=== PATIENT | female | born 1980 | race Hispanic/Latino ===

== ENCOUNTER 2017-10-04 11:00 | Outpatient (CLI) | payer MEDICAID | END 2017-10-04 11:01 | disposition home or self-care (01) | LOC: SLR 11:00 | PROVIDERS: ATTEND Otolaryngology | DX: G47.33 Obstructive sleep apnea (adult) (pediatric) (principal); R40.0 Somnolence | CPT/HCPCS: G0399 ==

== ENCOUNTER 2018-09-09 07:57 | Day surgery (SDC) | payer MEDICAID ==
[~2018-09-09 07:57] MED LIST: NACL 0.9% 1000 ML 1,000 ML IV SCH
--- NOTE | 2018-09-09 09:34 | Anesthesia Day of Surgery ---
Anesthesia Day of Surgery - Day of Surgery Patient Examined: Yes Patient H&P Reviewed: Yes Patient is NPO: Yes
--- NOTE | 2018-09-09 09:36 | Anesthesia Consultation ---
Anesthesia Consult and Med Hx Date of service: 09/09/18 - Airway Anesthetic Teeth Evaluation: Edentulous ROM Head & Neck: Adequate Mental/Hyoid Distance: Adequate Mallampati Class: Class II Intubation Access Assessment: Good - Pre-Operative Health Status ASA Pre-Surgery Classification: ASA3 Proposed Anesthetic Plan: MAC - Pulmonary Hx Asthma: Yes Hx Sleep Apnea: Yes - Cardiovascular System Hx Hypertension: Yes - Central Nervous System Hx Neuromuscular Disorder: Yes (RA; Fibromyalgia) Hx Back Pain: Yes - Gastrointestinal Hx Gastroesophageal Reflux Disease: Yes - Endocrine Hx Liver Disease: Yes (Fatty liver) Hx Thyroid Disease: Yes (Thyroidectomy) Hx Hypothyroidism: Yes
[2018-09-09] MEDS ORDERED: DIPRIVAN 10 MG/ML IV ONE (10:40)
[2018-09-09] MEDS ORDERED: WATER FOR IRRIG STERILE IR ONE (10:45)
[2018-09-09 11:51] VITALS: BP 144/79
== END 2018-09-09 07:58 | disposition home or self-care (01) ==
LOC: GIO 07:57
PROVIDERS: ATTEND Specialist
DX: K21.9 Gastro-esophageal reflux disease without esophagitis (principal); K44.9 Diaphragmatic hernia without obstruction or gangrene; E66.01 Morbid (severe) obesity due to excess calories; K30 Functional dyspepsia; I10 Essential (primary) hypertension; J45.909 Unspecified asthma, uncomplicated; G47.30 Sleep apnea, unspecified; M79.7 Fibromyalgia; E03.9 Hypothyroidism, unspecified; E11.9 Type 2 diabetes mellitus without complications; Z79.899 Other long term (current) drug therapy; Z88.6 Allergy status to analgesic agent; Z79.84 Long term (current) use of oral hypoglycemic drugs; Z68.42 Body mass index [BMI] 45.0-49.9, adult
CPT/HCPCS: 43235; 81025; 82962; 88305; 88342; J2704; J7030

== ENCOUNTER 2018-09-30 07:53 | Inpatient (IN) | payer MEDICAID ==
--- NOTE | 2018-09-29 10:55 | Anesthesia Consultation ---
Anesthesia Consult and Med Hx Date of service: 09/29/18 - Airway Anesthetic Teeth Evaluation: Dentures ROM Head & Neck: Adequate Mallampati Class: Class II Intubation Access Assessment: Probably Good - Pulmonary Exam CTA: Yes - Cardiac Exam Cardiac Exam: RRR - Pre-Operative Health Status ASA Pre-Surgery Classification: ASA3 Proposed Anesthetic Plan: General (Pt with DM, HTN, reflux, hypothroidism and morbid obesity for Gastric Sleevevs bypass ) - Pulmonary Hx Smoking: Yes Hx Asthma: Yes (RESCUE INHALER, ORAL MED) Hx Sleep Apnea: No (SLEEP STUDY NEG) - Cardiovascular System Hx Hypertension: Yes (2013) - Central Nervous System Hx Neuromuscular Disorder: Yes (RA; Fibromyalgia) Hx Back Pain: Yes Hx Psychiatric Problems: Yes - Gastrointestinal Hx Gastroesophageal Reflux Disease: Yes - Endocrine Hx Liver Disease: Yes (Fatty liver) Hx Thyroid Disease: Yes (Thyroidectomy) Hx Hypothyroidism: Yes (THYROIDECTOMY) - Other Systems Hx Obesity: Yes
[~2018-09-30 07:53] MED LIST changes: +MARCAINE-EPI 0.5%-1:200,000 INFILTRATI ONE; +PEPCID PO NR; +PROVENTIL IH NR; +VERSED IV NR; +XYLOCAINE 1% 20 mL ONE
[2018-09-30] MEDS ORDERED: NORCO PO PRN (08:08)
[2018-09-30] MEDS ORDERED: ZOFRAN IV PRN ×2 (08:08→08:35)
[2018-09-30] MEDS ORDERED: SUBLIMAZE IV PRN (08:35)
--- NOTE | 2018-09-30 08:39 | Anesthesia Day of Surgery ---
Anesthesia Day of Surgery - Day of Surgery Patient Examined: Yes Patient H&P Reviewed: Yes Patient is NPO: Yes
[2018-09-30] MEDS ORDERED: PEPCID IV NR (08:44)
[2018-09-30] MEDS ORDERED: LEVAQUIN 500MG/100ML 500 MG/100 ML BAG IV NR (09:00)
[2018-09-30] MEDS ORDERED: LOVENOX SUB-Q NR (09:00)
[2018-09-30] MEDS ORDERED: FLAGYL 500 MG/100 ML 500 MG/100 ML BAG IV NR (10:00)
[2018-09-30] MEDS ORDERED: DIPRIVAN 10 MG/ML IV ONE (10:02)
[2018-09-30] MEDS ORDERED: SUBLIMAZE ONE ×2 (10:02→11:16)
[2018-09-30] MEDS ORDERED: NACL 0.9% IR ONE ×2 (10:10)
[2018-09-30] MEDS ORDERED: XYLOCAINE 1% 20 mL INFILTRATI ONE (10:10)
[2018-09-30] MEDS ORDERED: MARCAINE-EPI 0.5%-1:200,000 INFILTRATI ONE (10:10)
[2018-09-30] MEDS ORDERED: APRESOLINE IV PRN (10:30)
[2018-09-30] MEDS ORDERED: VERSED IV ONE (10:30)
[2018-09-30] MEDS ORDERED: QUELICIN ONE (11:17)
[2018-09-30] MEDS ORDERED: ZOFRAN ONE (11:17)
[2018-09-30] MEDS ORDERED: ROBINUL ONE ×2 (11:17→11:30)
[2018-09-30] MEDS ORDERED: DECADRON ONE (11:17)
[2018-09-30] MEDS ORDERED: NEO SYNEPHRINE ONE (11:17)
[2018-09-30] MEDS ORDERED: LACTATED RINGERS 1,000 ML ONE (11:17)
[2018-09-30] MEDS ORDERED: ZEMURON IV ONE (11:17)
[2018-09-30] MEDS ORDERED: XYLOCAINE MPF 2% ONE (11:17)
[2018-09-30] MEDS ORDERED: BLOXIVERZ ONE (11:30)
[2018-09-30] MEDS: REGLAN IV PRN ×2 (12:30→20:45)
[2018-09-30] MEDS: MYLICON PO PRN ×2 (12:34→20:45)
[2018-09-30] MEDS: TORADOL IV SCH ×2 (12:44→18:11)
[2018-09-30] MEDS: LACTATED RINGERS 1,000 ML IV SCH ×2 (13:42→20:43)
[2018-09-30] MEDS: DILAUDID IV PRN ×3 (14:47→23:58)
--- NOTE | 2018-09-30 17:14 | Operative Report ---
SURGEON: Raleigh Scott MD ASSISTANTS: Chadwick Gilliland MD Fellow; Vesna Self MD, CSA PREOPERATIVE DIAGNOSIS: Morbid obesity. POSTOPERATIVE DIAGNOSIS: Morbid obesity. OPERATION: 1. Laparoscopic Monica-en-Y gastric bypass, 150 cm antecolic antegastric. 2. Upper endoscopy. ANESTHESIA: General endotracheal anesthesia. COMPLICATIONS: None. SPECIMENS: None. BLEEDING: Less than 15 mL. INDICATIONS: The patient is a 38-year-old female with a history of morbid obesity. She has undergone preoperative bariatric workup and presents for a planned operation. The risks, complications and alternatives have been explained to the patient and informed consent was obtained. DESCRIPTION OF PROCEDURE: The patient was brought to the operating room where she was placed in the supine position and underwent general endotracheal intubation. She received preoperative antibiotics and DVT prophylaxis. She was prepped and draped in the usual sterile fashion and then a timeout was called to ensure proper patient, indication, operation. Local analgesia was injected around the umbilical region. A small stab incision was made at the base of the umbilicus with insertion of a Veress needle and insufflation pressures were achieved to 18 mmHg. This incision was slightly widened and a 5 mm trocar was placed. On intraabdominal view, there was no injury. A 12 mm trocar was placed to the right of the midclavicular line and 5 mm ports were placed in the right lateral subxiphoid in left lateral quadrant. The ligament of Treitz was identified. The bowel was run 50 cm antegrade and transected at this point with a white load stapler. The staple line was cauterized for hemostasis. Then, the mesentery was slightly widened. After this, the bowel was run an additional 150 cm antegrade and then a jejunojejunostomy was then performed utilizing a white load staple. The common enterotomy was closed with another staple load, and the staple line was cauterized for hemostasis. After this, an anti-kink stitch was placed with a 0 Surgidac suture. The afferent limb to the biliopancreatic limb and then the mesenteric defect was closed with a running 0 Surgidac suture. After this, a liver retractor was placed and the patient was repositioned in steep reverse Trendelenburg. The angle of His was dissected free and the gastroesophageal fat pad was removed. She had no hiatal hernia. A retrogastric dissection was performed with electrocautery and blunt dissection and a 30 cc pouch was created with several staple loads. After this, a gastrojejunostomy was one, bringing up the Monica limb and securing medially and laterally with 0 Surgidac sutures. A gastrotomy and enterotomy were performed and a gastrojejunostomy was created. The common enterotomy was closed with 2 layers of 2-0 running V-Loc sutures. After this, the anastomosis was submerged and the Monica limb was clamped with a bowel clamp. An upper endoscopy was performed, which was negative for leak or any intraluminal bleeding. The scope passed into the Monica limb with no issues. After this, the air was suctioned out. The gastroscope was removed. Normal saline was instilled into the left upper and right upper quadrant to assist with postoperative gas pain and air was desufflated and the ports were removed. Additional local was injected into the umbilical and incisional wounds and the incisions were closed with 4-0 Monocryl. Sterile bandages were placed over top. The patient tolerated the procedure well and was then extubated and left the operating room in stable condition. Counts were correct. FINDINGS: 1. Negative leak test. 2. Fatty liver. JOB# [id number] DESTINEE/GAGE AMBROSIO
[2018-09-30] MEDS: GLUCOPHAGE PO SCH (18:14)
[2018-09-30] MEDS ORDERED: SINGULAIR PO SCH (21:00)
[2018-10-01] MEDS: TORADOL IV SCH ×3 (00:02→12:00)
[2018-10-01 05:41] LABS: Basophils % (Auto) 0.1 % (0.0-1.8); Eosinophils % (Auto) 0.1 % (0.0-4.3); Hematocrit 31.9 % (30.3-42.9); Hemoglobin 10.4 gm/dl (10.1-14.3); Lymphocytes # (Auto) 1.6 K/mm3 (1.2-5.4); Lymphocytes % (Auto) 9.7 % (13.4-35.0); Mean Corpuscular HGB Conc 33 % (30-34); Mean Corpuscular Volume 79 fl (79-97); Monocytes # (Auto) 0.6 K/mm3 (0.0-0.8); Monocytes % (Auto) 3.4 % (0.0-7.3); Platelet Count 264 K/mm3 (140-440); Red Blood Count 4.01 M/mm3 (3.65-5.03); Red Cell Distribution Width 14.8 % (13.2-15.2)
[2018-10-01] MEDS: DILAUDID IV PRN (05:46)
[2018-10-01] MEDS: REGLAN IV PRN (05:46)
[2018-10-01] MEDS: MYLICON PO PRN (05:47)
[2018-10-01] MEDS: LACTATED RINGERS 1,000 ML IV SCH (05:48)
[2018-10-01] MEDS ORDERED: SYNTHROID PO SCH (06:00)
[2018-10-01 06:06] LABS: Albumin 3.4 g/dL (3.9-5)
--- NOTE | 2018-10-01 07:22 | Discharge Summary ---
Providers - Providers Date of Admission: 09/30/18 07:53 Date of discharge: 10/01/18 Attending physician: TERRELL SCOTT Primary care physician: LANIE GREEN Hospitalization Reason for admission: postop Condition: Good Procedures: 10/01/18: Laparoscopic RYGB Hospital course: 38F admitted after her operation for routine postop care. She was managed on the general floor, ambulated, tolerated a CLD, and was dc home POD1. Disposition: DC-01 TO HOME OR SELFCARE Core Measure Documentation - Palliative Care Palliative Care/ Comfort Measures: Not Applicable - Core Measures Any of the following diagnoses?: none - VTE Discharge Requirements Deep Vein Thrombosis/Pulmonary Embolism Present on Admission: No - Acute MA Discharge Requirements Aspirin at discharge: No Reason for no aspirin on DC: Surgical contraindication - Heart Failure Discharge Requirements NISHANT/ARB for LVSD if EF <40%: Not Applicable - Stroke Discharge Requirements Statin for LDL = or >70 mg/dl on DC: Not Applicable Exam - Physical Exam Narrative exam: Gen: AAO, NAD Heart: RRR Lungs: CTAB Abd: MO, soft, NT, ND. Bandages present and c/d/i. - Constitutional Vitals: Temp Pulse Resp BP Pulse Ox 97.9 F 85 20 116/64 97 10/01/18 05:40 10/01/18 05:40 10/01/18 05:40 10/01/18 05:40 10/01/18 05:40 Plan Diet: clear liquids Wound: keep clean and dry Additional Instructions: Anibal Scott as scheduled Follow up with: LANIE GREEN MD [Primary Care Provider] - 7 Days
[2018-10-01] MEDS ORDERED: LOVENOX SUB-Q SCH (08:00)
[2018-10-01] MEDS ORDERED: HCTZ PO SCH (08:00)
[2018-10-01] MEDS ORDERED: PROTONIX PO SCH (08:00)
[2018-10-01] MEDS ORDERED: ZESTRIL PO SCH (08:00)
[2018-10-01 08:16] VITALS: BP 139/74
[2018-10-01] MEDS: GLUCOPHAGE PO SCH (11:21)
== END 2018-10-01 12:12 | disposition home or self-care (01) | DRG 621 ==
LOC: 3A 07:53 → 3B 12:10 → 3B-SURG 12:11
PROVIDERS: ADMIT Specialist; ATTEND Specialist
PROC: 0D164ZA Bypass Stomach to Jejunum, Percutaneous Endoscopic Approach (ICD-10-PCS; principal; 2018-09-30)
PROC: 0DJ08ZZ Inspection of Upper Intestinal Tract, Via Natural or Artificial Opening Endoscopic (ICD-10-PCS; 2018-09-30)
DX: E66.01 Morbid (severe) obesity due to excess calories (principal); I10 Essential (primary) hypertension; K21.9 Gastro-esophageal reflux disease without esophagitis; E89.0 Postprocedural hypothyroidism; E11.9 Type 2 diabetes mellitus without complications; J45.909 Unspecified asthma, uncomplicated; Z68.42 Body mass index [BMI] 45.0-49.9, adult; M79.7 Fibromyalgia
CPT/HCPCS: 36415; 80053; 81025; 82962; 85025; G0378; A4217; J0330; J1100; J1170; J1650; J1885; J1956; J2250; J2370; J2405; J2704; J2710; J2765; J3010; J7030; J7120

== ENCOUNTER 2018-10-13 12:50 | Inpatient (IN) | payer MEDICAID ==
[2018-10-13] MEDS ORDERED: NACL 0.9% 1000 ML 1,000 ML IV ONE ×5 (13:38→19:25)
[2018-10-13] MEDS ORDERED: MORPHINE IV ONE (13:38)
[2018-10-13] MEDS ORDERED: REGLAN IV ONE (13:39)
--- NOTE | 2018-10-13 13:40 | Emergency Department Report ---
ED General Adult HPI - General Chief complaint: Abdominal Pain Stated complaint: DIZZINESS/N/V Time Seen by Provider: 10/13/18 13:29 Source: patient, EMS (verbal report received from EMS.ems notes not available at time of chart dictation), RN notes reviewed, old records reviewed Mode of arrival: Stretcher Limitations: Physical Limitation - History of Present Illness Initial comments: This is a 38-year-old female. The patient is not known to this provider previously. Primary care Dr.: Yaniv Crowder Bariatric surgeon: Dr Yesica Scott Past medical history: Morbid obesity, hypothyroidism, diabetes, dyspepsia, recently had a Monica-en-Y gastric bypass surgery performed at this hospital. Patient brought to the hospital by EMS. Patient reports being in her usual state of health when she consumed yogurt earlier on today, and shortly thereafter, began to have diffuse cramping abdominal pain, nausea and vomiting. EMS verbally reports to give the patient fluid and Zofran. Patient indicates her abdominal pain is diffuse, cramping, sharp, does not radiate anywhere, increases with palpation and decreases with rest. She's been having chronic loose bowel movements since discharge from the hospital. She reports that she had cardiac clearance prior to her surgery by a supervisor fryer farm in [place], does not know the specific name. Patient also endorses shortness of breath, which started today, which she describes as a sensation of "breathing through a straw." She is urinating less than normal. She also endorses lower extremity cramping and discomfort. -: Sudden Location: abdomen, left, right, lower extremity Radiation: non-radiation Consistency: constant Improves with: other Worsens with: other - Related Data Home Medications Medication Instructions Recorded Confirmed Last Taken Albuterol Sulfate [Proventil Hfa] 2 puff IH Q4H PRN 09/24/18 10/14/18 09/29/18 Levothyroxine [Synthroid] 150 mcg PO QAM 09/24/18 10/14/18 10/13/18 Lisinopril/Hydrochlorothiazide 1 each PO DAILY 09/24/18 10/14/18 10/13/18 [Zestoretic 10-12.5 mg Tablet] Montelukast [Singulair] 10 mg PO QPM 09/24/18 10/14/18 10/13/18 Omeprazole 40 mg PO DAILY 09/24/18 10/14/18 10/13/18 metFORMIN [Glucophage] 500 mg PO BID 09/24/18 10/14/18 10/13/18 Allergies Allergy/AdvReac Type Severity Reaction Status Date / Time amoxicillin Allergy Rash, Verified 09/24/18 09:09 CLOSES THE AIRWAYS ED Review of Systems ROS: Stated complaint: DIZZINESS/N/V Other details as noted in HPI Constitutional: malaise, other Eyes: denies: eye discharge ENT: denies: epistaxis Respiratory: shortness of breath Cardiovascular: denies: palpitations Gastrointestinal: abdominal pain, nausea, vomiting, diarrhea Genitourinary: other (decreased urinary frequency) Musculoskeletal: arthralgia Skin: denies: lesions Neurological: weakness Psychiatric: anxiety Hematological/Lymphatic: denies: easy bleeding ED Past Medical Hx - Past Medical History Hx Hypertension: Yes (2013) Hx Diabetes: Yes (2013) Hx GERD: Yes Hx Liver Disease: Yes (Fatty liver) Hx Asthma: Yes (RESCUE INHALER, ORAL MED) Hx HIV: (NEVER TESTED) - Surgical History Hx Cholecystectomy: Yes Hx Breast Surgery: Yes (L CYST REMOVAL) - Social History Smoking Status: Never Smoker Substance Use Type: None - Medications Home Medications: Home Medications Medication Instructions Recorded Confirmed Last Taken Type Albuterol Sulfate [Proventil Hfa] 2 puff IH Q4H PRN 09/24/18 10/14/18 09/29/18 History Levothyroxine [Synthroid] 150 mcg PO QAM 09/24/18 10/14/18 10/13/18 History Lisinopril/Hydrochlorothiazide 1 each PO DAILY 09/24/18 10/14/18 10/13/18 History [Zestoretic 10-12.5 mg Tablet] Montelukast [Singulair] 10 mg PO QPM 09/24/18 10/14/18 10/13/18 History Omeprazole 40 mg PO DAILY 09/24/18 10/14/18 10/13/18 History metFORMIN [Glucophage] 500 mg PO BID 09/24/18 10/14/18 10/13/18 History ED Physical Exam - General Limitations: No Limitations General appearance: alert, in no apparent distress - Head Head exam: Present: atraumatic, normocephalic - Eye Eye exam: Present: normal appearance, EOMI. Absent: nystagmus - ENT ENT exam: Present: normal exam, normal orophraynx, mucous membranes moist, normal external ear exam - Neck Neck exam: Present: normal inspection, full ROM. Absent: tenderness, m eningismus - Respiratory Respiratory exam: Present: normal lung sounds bilaterally. Absent: respiratory distress - Cardiovascular Cardiovascular Exam: Present: regular rate, normal rhythm, normal heart sounds. Absent: bradycardia, tachycardia, irregular rhythm, systolic murmur, diastolic murmur, rubs, gallop - GI/Abdominal GI/Abdominal exam: Present: soft, tenderness. Absent: distended, guarding, rebound, rigid, pulsatile mass - Extremities Exam Extremities exam: Present: normal inspection, full ROM, calf tenderness (there is no palpable cord. There is a negative Homans sign.), other (2+ pulses noted in the bilateral upper, lower extremities. Compartments soft. No long bony tenderness. The pelvis is stable.). Absent: pedal edema - Back Exam Back exam: Present: normal inspection, full ROM. Absent: tenderness, CVA tenderness (R), CVA tenderness (L), paraspinal tenderness, vertebral tenderness - Neurological Exam Neurological exam: Present: alert, oriented X3, other (Extraocular movements intact. Tongue midline. No facial droop. Facial sensation intact to light touch in the V1, V2, V3 distribution bilaterally. 5 and 5 strength in 4 extrem ities.. Sensation is intact to light touch in 4 extremities.). Absent: motor sensory deficit - Psychiatric Psychiatric exam: Present: anxious - Skin Skin exam: Present: warm, dry, intact, normal color. Absent: rash ED Course Vital Signs 10/13/18 10/13/18 10/13/18 13:35 14:32 14:46 Temperature 98.8 F Pulse Rate 96 H 98 H Respiratory 18 17 20 Rate Blood Pressure 93/57 89/42 Blood Pressure [Right] O2 Sat by Pulse 100 96 Oximetry 10/13/18 10/13/18 10/13/18 14:54 15:00 15:15 Temperature Pulse Rate 93 H 89 Respiratory 22 25 H Rate Blood Pressure 94/46 92/44 Blood Pressure [Right] O2 Sat by Pulse 98 96 94 Oximetry 10/13/18 10/13/18 10/13/18 15:30 17:26 17:30 Temperature Pulse Rate 86 88 Respiratory 25 H 18 Rate Blood Pressure 88/36 Blood Pressure [Right] O2 Sat by Pulse 96 98 97 Oximetry 10/13/18 10/13/18 10/13/18 17:45 18:00 18:15 Temperature Pulse Rate 86 82 95 H Respiratory 23 21 21 Rate Blood Pressure 73/40 77/38 94/54 Blood Pressure [Right] O2 Sat by Pulse 94 98 97 Oximetry 10/13/18 10/13/18 10/13/18 18:30 18:45 19:00 Temperature Pulse Rate 86 78 79 Respiratory 18 20 21 Rate Blood Pressure 102/47 93/51 93/51 Blood Pressure [Right] O2 Sat by Pulse 97 98 96 Oximetry 10/13/18 10/13/18 10/13/18 19:15 19:30 19:45 Temperature Pulse Rate 78 91 H 81 Respiratory 23 13 22 Rate Blood Pressure 85/45 85/45 88/43 Blood Pressure [Right] O2 Sat by Pulse 91 98 94 Oximetry 10/13/18 10/13/18 10/13/18 19:59 20:00 20:15 Temperature Pulse Rate 82 81 87 Respiratory 16 19 18 Rate Blood Pressure 88/43 97/44 84/44 Blood Pressure [Right] O2 Sat by Pulse 97 97 98 Oximetry 10/13/18 10/13/18 10/13/18 20:30 20:34 20:45 Temperature Pulse Rate 84 87 85 Respiratory 19 18 26 H Rate Blood Pressure 99/49 99/49 80/39 Blood Pressure [Right] O2 Sat by Pulse 97 98 93 Oximetry 10/13/18 10/13/18 10/13/18 21:00 21:15 21:30 Temperature Pulse Rate 91 H 89 90 Respiratory 22 16 23 Rate Blood Pressure 88/43 94/44 77/31 Blood Pressure [Right] O2 Sat by Pulse 96 96 Oximetry 10/13/18 10/13/18 10/13/18 21:45 22:00 22:15 Temperature Pulse Rate 92 H 80 84 Respiratory 19 26 H 22 Rate Blood Pressure 80/44 96/39 95/42 Blood Pressure [Right] O2 Sat by Pulse 100 95 96 Oximetry 10/13/18 10/13/18 10/13/18 22:30 22:46 23:00 Temperature Pulse Rate 84 88 87 Respiratory 25 H 22 16 Rate Blood Pressure 96/40 96/40 92/41 Blood Pressure [Right] O2 Sat by Pulse 94 95 98 Oximetry 10/13/18 10/13/18 10/13/18 23:16 23:30 23:39 Temperature 99.0 F Pulse Rate 90 92 H Respiratory 25 H 24 Rate Blood Pressure 92/41 92/41 Blood Pressure [Right] O2 Sat by Pulse 93 96 Oximetry 10/13/18 10/14/18 10/14/18 23:46 00:00 00:16 Temperature Pulse Rate 90 93 H Respiratory 24 17 Rate Blood Pressure 86/41 89/47 89/47 Blood Pressure [Right] O2 Sat by Pulse 96 94 99 Oximetry 10/14/18 10/14/18 10/14/18 00:30 00:46 01:00 Temperature Pulse Rate 86 87 79 Respiratory 21 20 21 Rate Blood Pressure 89/47 89/47 95/48 Blood Pressure [Right] O2 Sat by Pulse 97 96 97 Oximetry 10/14/18 10/14/18 10/14/18 01:16 01:30 02:07 Temperature Pulse Rate 86 87 Respiratory 18 13 Rate Blood Pressure 95/48 95/48 93/44 Blood Pressure [Right] O2 Sat by Pulse 98 99 Oximetry 10/14/18 10/14/18 10/14/18 05:05 05:16 05:30 Temperature Pulse Rate 83 80 Respiratory 18 19 Rate Blood Pressure 90/42 90/42 90/42 Blood Pressure [Right] O2 Sat by Pulse Oximetry 10/14/18 10/14/18 10/14/18 05:52 06:00 06:58 Temperature Pulse Rate 71 78 91 H Respiratory 16 16 Rate Blood Pressure 90/42 102/49 92/47 Blood Pressure [Right] O2 Sat by Pulse Oximetry 10/14/18 10/14/18 10/14/18 07:00 07:16 07:30 Temperature Pulse Rate 71 67 67 Respiratory 18 16 18 Rate Blood Pressure 92/47 92/47 92/47 Blood Pressure [Right] O2 Sat by Pulse Oximetry 10/14/18 10/14/18 10/14/18 07:46 08:00 08:06 Temperature 98.5 F Pulse Rate 72 70 65 Respiratory 17 16 16 Rate Blood Pressure 92/47 104/51 Blood Pressure 104/57 [Right] O2 Sat by Pulse 95 Oximetry 10/14/18 10/14/18 10/14/18 08:16 08:30 08:46 Temperature Pulse Rate 73 76 74 Respiratory 16 17 17 Rate Blood Pressure 95/45 95/45 91/36 Blood Pressure [Right] O2 Sat by Pulse 95 94 97 Oximetry 10/14/18 10/14/18 10/14/18 09:06 09:16 09:30 Temperature Pulse Rate 74 74 Respiratory 15 18 22 Rate Blood Pressure 91/36 112/55 91/36 Blood Pressure [Right] O2 Sat by Pulse 97 95 Oximetry 10/14/18 10/14/18 10/14/18 09:46 10:00 10:16 Temperature Pulse Rate Respiratory 13 Rate Blood Pressure 91/36 109/62 109/62 Blood Pressure [Right] O2 Sat by Pulse 98 99 99 Oximetry 10/14/18 10/14/18 10/14/18 10:30 10:48 11:00 Temperature Pulse Rate 79 72 Respiratory 15 12 Rate Blood Pressure 109/62 109/62 109/62 Blood Pressure [Right] O2 Sat by Pulse 98 99 99 Oximetry 10/14/18 10/14/18 10/14/18 11:07 11:16 11:30 Temperature Pulse Rate 72 74 Respiratory 15 16 Rate Blood Pressure 101/56 122/69 Blood Pressure 101/56 [Right] O2 Sat by Pulse 98 99 98 Oximetry 10/14/18 10/14/18 10/14/18 11:46 12:00 12:16 Temperature Pulse Rate 76 77 Respiratory 12 13 Rate Blood Pressure 122/69 122/69 114/69 Blood Pressure 139/78 [Right] O2 Sat by Pulse 99 98 97 Oximetry 10/14/18 10/14/18 10/14/18 12:30 12:46 13:00 Temperature Pulse Rate 67 Respiratory 18 19 19 Rate Blood Pressure 114/69 113/59 113/59 Blood Pressure [Right] O2 Sat by Pulse 99 97 97 Oximetry 10/14/18 10/14/18 10/14/18 13:16 13:30 13:46 Temperature Pulse Rate Respiratory 19 20 18 Rate Blood Pressure 129/79 129/79 123/78 Blood Pressure [Right] O2 Sat by Pulse 96 96 96 Oximetry 10/14/18 10/14/18 10/14/18 14:00 14:16 14:30 Temperature Pulse Rate Respiratory 17 17 13 Rate Blood Pressure 123/78 139/78 139/78 Blood Pressure [Right] O2 Sat by Pulse 97 97 97 Oximetry 10/14/18 10/14/1819 14:46 15:00 16:00 Temperature Pulse Rate Respiratory 20 16 Rate Blood Pressure 140/71 Blood Pressure 114/69 [Right] O2 Sat by Pulse 97 99 Oximetry 10/14/18 17:51 Temperature Pulse Rate 88 Respiratory 17 Rate Blood Pressure Blood Pressure 147/69 [Right] O2 Sat by Pulse 97 Oximetry - Reevaluation(s) Reevaluation #1: 10/13/18 14:23 Differential diagnosis, including not limited to: Obstruction, leakage, internal hernia, postoperative infection, pneumonia, pulmonary embolus, renal insufficiency, DVT, dumping syndrome Assessment and plan: 38-year-old female status post Monica-en-Y gastric bypass surgery, with sudden onset of abdominal pain, nausea and vomiting, and shortness of breath. Patient has a heart rate of 96 and is somewhat hypotensive blood pressure 93/60. IV fluids ordered, pain medication, nausea medication ordered. Emergency CT scan of the chest, abdomen, pelvis have been requested. Lower extremity DVT study has been ordered. I emergently consulted the patient's covering bariatric surgeon, Dr. Jo and have requested a bariatric surgery consult in the emergency room. She recommends acquisition of aforementioned diagnostics, with 300 mL of oral contrast. We will reassess once the patient's data points have resulted. Reevaluation #2: 10/13/18 15:21 131 lbs [place] Body Weight Actual body weight is 207% (2.1x) ideal body weight Reevaluation #3: 10/13/18 18:32 Multiple re-evaluations performed while in the emergency department.blood pressure dropped to the 80s and then 70s. Patient has received a total volume of 5 L of IV fluids. Her blood pressure is now 102/47. She reports that she feels markedly improved. She is not having any pain at this time. She is not having any nausea or vomiting at this time. Multiple discussions had with covering bariatric surgeon, Dr. Jo, who accepts the patient on behalf of Dr. Scott. Discussed laboratory findings and CT scan findings with patient and the aforementioned physician. Patient is amenable to hospitalization for further supportive care. ED Medical Decision Making - Lab Data Result diagrams: 10/14/18 05:28 10/14/18 05:28 Vital Signs 10/13/18 13:35 Temperature 98.8 F Pulse Rate 96 H Respiratory 18 Rate Blood Pressure 93/57 O2 Sat by Pulse 100 Oximetry - EKG Data -: EKG Interpreted by Me EKG shows normal: sinus rhythm Rate: normal - EKG Data When compared to previous EKG there are: previous EKG unavailable 10/13/18 14:44 This is a low voltage EKG, normal sinus, 96, normal axis, normal intervals, not having chest pain, unremarkable EKG, not consistent with ST elevation myocardial infarction. - Radiology Data Radiology results: pending, report reviewed, image reviewed interpreted by me: X-ray of the chest appears to be unremarkable, poor inspiratory effort. DVT study negative for acute disease. Print Report Referring Physician: TRE YAÑEZ Patient Name: AMY DAVIS Date of : 1980 Sex: Female Report Date: 2018-10-13 Report Status: [place] [address] Cat Scan Report Signed Patient: AMY DAVIS MR#: [id number] 91 : 1980 Acct:[id number] Age/Sex: 38 / F ADM Date: 10/13/18 Loc: ED Attending Dr: Gray cardona Physician: TRE YAÑEZ MD Date of Service: 10/13/18 Procedure(s): CT abdomen pelvis wo con Accession Number(s): [id number] cc: TRE YAÑEZ MD CT scan of the abdomen and pelvis without contrast INDICATION: Abdominal pain, nausea and vomiting. TECHNIQUE: All CT scans at this location are performed using the following dose modulation technique: Automated exposure control. Helical slices were obtained through the abdomen and pelvis. No intravenous contrast is administered. Oral contrast was administered. COMPARISON: None available. FINDINGS: Abdomen: The lung bases are clear. Is fatty infiltration of the liver. The spleen, pancreas, adrenal glands, and kidneys are unremarkable. Changes of prior gastric bypass are noted. No bowel obstruction is seen. There is no free air. There are no abnormal fluid collections the aorta is normal in diameter. Pelvis: There is a 4.8 cm left ovarian cyst. There are phleboliths. There is no adenopathy. On review of bone windows, no acute osseous abnormalities are seen. IMPRESSION: 1. There is no obstruction, inflammation, or free air. There are no abnormal fluid collections. Changes of prior gastric bypass are noted. There is fatty infiltration of the liver. There is a 4.8 cm left ovarian cyst. This is likely physiologic cyst. Follow-up pelvic ultrasound is recommended in 6-8 weeks a different phase of patient's menstrual cycle to ensure resolution and to ensure that this is not a cystic mass in the ovary. Signer Name: Nilson Foreman MD Signed: 10/13/2018 6:02 PM Workstation Name: [id number] Transcribed By: SS Dictated By: Nilson Foreman MD Electronically Authenticated By: Nilson Foreman MD Signed Date/Time: 10/13/18 1802 X-ray of the chest negative for acute disease. Nuclear medicine study is low probability for pulmonary embolus Critical Care Time: Yes Critical care time in (mins) excluding proc time.: 60 Critical care attestation.: If time is entered above; I have spent that time in minutes in the direct care of this critically ill patient, excluding procedure time. ED Disposition Clinical Impression: JADYN (acute kidney injury), Hypomagnesemia, SIRS (systemic inflammatory response syndrome) Disposition: -09 OP ADMIT IP TO THIS HOSP Is pt being admited?: Yes Condition: Serious
--- NOTE | 2018-10-13 14:36 | Vascular Lab Report ---
DUPLEX DOPPLER BILATERAL LOWER EXTREMITY VEINS INDICATION: Shortness of breath, bilateral lower extremity cramping FINDINGS: There is no thrombus within the deep veins of either lower extremity from the common femoral to the c libra veins. There is normal compression and augmentation on spectral analysis. IMPRESSION: No sonographic evidence for DVT in either lower extremity. Signer Name: Jack Morris MD Signed: 10/13/2018 2:32 PM Workstation Name: [id number]
--- NOTE | 2018-10-13 14:44 | XRay Report ---
CHEST 1 VIEW 10/13/2018 2:15 PM INDICATION / CLINICAL INFORMATION: dyspnea. COMPARISON: None available. FINDINGS: SUPPORT DEVICES: None. HEART / MEDIASTINUM: No significant abnormality. LUNGS / PLEURA: No significant pulmonary or pleural abnormality. No pneumothorax. ADDITIONAL FINDINGS: No significant additional findings. IMPRESSION: 1. No acute findings. Signer Name: Jack Morris MD Signed: 10/13/2018 2:40 PM Workstation Name: [id number]
[2018-10-13 15:00] LABS: Hematocrit 34.6 % (30.3-42.9); Hemoglobin 11.3 gm/dl (10.1-14.3); Mean Corpuscular HGB Conc 33 % (30-34); Mean Corpuscular Volume 81 fl (79-97); Platelet Count 273 K/mm3 (140-440); Red Cell Distribution Width 15.4 % (13.2-15.2)
[2018-10-13 15:10] LABS: INR 1.11 (0.87-1.13)
[2018-10-13] MEDS ORDERED: LEVAQUIN 750MG/150ML 750 MG/150 ML BAG IV ONE (15:22)
[2018-10-13] MEDS ORDERED: FLAGYL 500 MG/100 ML 500 MG/100 ML BAG IV ONE (15:22)
[2018-10-13 15:25] LABS: Alanine Aminotransferase 53 units/L (7-56); Albumin 3.9 g/dL (3.9-5); BUN/Creatinine Ratio 7; Blood Urea Nitrogen 15 mg/dL (7-17); Calcium 9.6 mg/dL (8.4-10.2); Hemolysis Index 29
[2018-10-13] MEDS ORDERED: MAGNESIUM SULFATE 2GM/50ML 2 GM/50 ML BAG IV ONE ×2 (15:33→20:20)
[2018-10-13 16:11] LABS: Basophils % (Manual) 0 % (0.0-1.8); Eosinophils % (Manual) 0 % (0.0-4.3); Total Cells Counted 100
[2018-10-13 16:13] LABS: Anisocytosis 1+
--- NOTE | 2018-10-13 17:22 | Nuclear Medicine Report ---
Nuclear medicine ventilation/perfusion lung imaging. 10/13/2018. HISTORY: Shortness of breath. Tracer: Technetium 99m MAA 5 mCi IV injection in xenon-133 gas 13 mCi inhalation. COMPARISON: Chest x-ray 10/13/2018. FINDINGS: Ventilation and perfusion lung imaging were performed. There is matched decreased ventilati on and perfusion at the left base in the posterior view likely due to soft tissue attenuation. No ayden picious ventilation or perfusion defect is present. IMPRESSION: Low probability for pulmonary embolus. Signer Name: Abdirahman Kaur MD Signed: 10/13/2018 5:18 PM Workstation Name: [id number]
--- NOTE | 2018-10-13 18:07 | Cat Scan Report ---
CT scan of the abdomen and pelvis without contrast INDICATION: Abdominal pain, nausea and vomiting. TECHNIQUE: All CT scans at this location are performed using the following dose modulation technique: Automated exposure control. Helical slices were obtained through the abdomen and pelvis. No intravenous contras t is administered. Oral contrast was administered. COMPARISON: None available. FINDINGS: Abdomen: The lung bases are clear. Is fatty infiltration of the liver. The spleen, pancreas, adrenal glands, and kidneys are unremarkable. Changes of prior gastric bypass are noted. No bowel obstruction is seen. There is no free air. There are no abnormal fluid collections the aorta is normal in diamet er. Pelvis: There is a 4.8 cm left ovarian cyst. There are phleboliths. There is no adenopathy. On review of bone windows, no acute osseous abnormalities are seen. IMPRESSION: 1. There is no obstruction, inflammation, or free air. There are no abnormal fluid collections. Changes of prior gastric bypass are noted. There is fatty infiltration of the liver. There is a 4.8 cm left ovarian cyst. This is likely physiologic cyst. Follow-up pelvic ultrasound is recommended in 6-8 weeks a different phase of patient's menstrual cycle to ensure resolution and to e nsure that this is not a cystic mass in the ovary. Signer Name: Nilson Foreman MD Signed: 10/13/2018 6:02 PM Workstation Name: [id number]
[2018-10-13] MEDS ORDERED: NARCAN 0.4 MG/1 ML IV PRN (18:30)
[2018-10-13] MEDS ORDERED: PROVENTIL IH PRN (18:30)
[2018-10-13] MEDS ORDERED: SODIUM CHLORIDE FLUSH SYRINGE 10 ML IV PRN (18:30)
[2018-10-13] MEDS ORDERED: MORPHINE IV PRN (18:30)
[2018-10-13] MEDS ORDERED: ZOFRAN IV PRN (18:30)
[2018-10-13] MEDS ORDERED: TYLENOL PO PRN (18:30)
--- NOTE | 2018-10-13 18:30 | History and Physical Report ---
History of Present Illness Date of examination: 10/13/18 Date of admission: 10/13/18 Chief complaint: abdominal pain, nausea, vomiting, SOB History of present illness: 38F MO s/p LRYGB 09/30/18 presents to ER with c/o epigastric pain, nausea, vomiting, and SOB after ingesting some yogurt today. Her initial operation was nearly 2 weeks ago and was uneventful. She was discharged home on POD#1 after observation. She states that she has done fine on clear liquids, just started phase II diet today with full liquids and had an "episode" after the yogurt. Denies dysuria, changes in bowel habits, headaches, visual changes, new onset rashes. She endorses chills at home although she did not take her temperature, +nausea, +vomiting, + chest pain, + SOB. In the ER, labs were significant for WBC 19k and Cr 2.2. She was hypotensive in 90s/ with HRs in the 90s. She has been given several fluid boluses and started on sepsis protocol with blood cx, abx (levoquin and flagyl). Lactate is 2.3. A CT abdpelvis with po contrast only is reported as essentially normal postoper ative changes with no inflammation, no obstruction, no bowel dilatation, no free air. Upon evaluation, she states that she feels much better now although still has some abdominal epigastric pain. Her nausea is also better. Her BP is in the 90s/, HR 80s. Past History Past Medical History: anemia, diabetes, hypertension, other (DEMIAN; hypothyroidism; chronic back pain) Past Surgical History: cholecystectomy (laparoscopic 2013; Laparoscopic gastric bypass 09/30/18) Social history: , full code, other (2 children) Family history: no significant family history Medications and Allergies Allergies Allergy/AdvReac Type Severity Reaction Status Date / Time amoxicillin Allergy Rash, Verified 09/24/18 09:09 CLOSES THE AIRWAYS Home Medications Medication Instructions Recorded Confirmed Last Taken Type Albuterol Sulfate [Proventil Hfa] 2 puff IH Q4H PRN 09/24/18 09/24/18 09/29/18 History Levothyroxine [Synthroid] 150 mcg PO QAM 09/24/18 09/24/18 09/30/18 07:00 History Lisinopril/Hydrochlorothiazide 1 each PO DAILY 09/24/18 09/24/18 09/29/18 History [Zestoretic 10-12.5 mg Tablet] Montelukast [Singulair] 10 mg PO QPM 09/24/18 09/24/18 09/29/18 History Omeprazole 40 mg PO DAILY 09/24/18 09/24/18 09/30/18 07:00 History metFORMIN [Glucophage] 500 mg PO BID 09/24/18 09/24/18 09/29/18 History Active Meds: Active Medications Sodium Chloride (Nacl 0.9% 1000 Ml) 1,000 mls @ 999 mls/hr IV BOLUS ONE Stop: 10/13/18 18:32 Last Admin: 10/13/18 18:18 Dose: 999 mls/hr Documented by: Sodium Chloride (Nacl 0.9% 1000 Ml) 1,000 mls @ 999 mls/hr IV BOLUS ONE Stop: 10/13/18 18:43 Last Admin: 10/13/18 18:18 Dose: 999 mls/hr Documented by: Review of Systems All systems: negative (as stated in HPI) Exam - Physical Exam Narrative exam: Gen: AAO, NAD HEENT: Trachea midline, no masses Heart: RRR, no murmurs appreciated Lungs: Clear Abd: morbidly obese, incisions are healed and dry w/o signs of infection, no abdominal tenderness to palpation, no hernias or masses are appreciated Ext: No LE edema - Constitutional Vitals: Temp Pulse Resp BP Pulse Ox 98.8 F 95 H 21 94/54 97 10/13/18 13:35 10/13/18 18:15 10/13/18 18:15 10/13/18 18:15 10/13/18 18:15 Results - Labs CBC & Chem 7: 10/13/18 14:47 10/13/18 14:47 Labs: Abnormal lab results 10/13/18 10/13/18 10/13/18 Range/Units 14:47 14:47 14:47 WBC 19.4 H (4.5-11.0) K/mm3 MCH 26 L (28-32) pg RDW 15.4 H (13.2-15.2) % Seg Neuts % (Manual) 95.0 H (40.0-70.0) % Lymphocytes % (Manual) 2.0 L (13.4-35.0) % Seg Neutrophils # Man 18.4 H (1.8-7.7) K/mm3 Lymphocytes # (Manual) 0.4 L (1.2-5.4) K/mm3 APTT 23.0 L (24.2-36.6) Sec. D-Dimer 796.05 H (0-234) ng/mlDDU Creatinine 2.2 H (0.7-1.2) mg/dL Glucose 131 H (65-100) mg/dL Lactic Acid (0.7-2.0) mmol/L Magnesium 1.30 L (1.7-2.3) mg/dL AST 49 H (5-40) units/L 10/13/18 10/13/18 Range/Units 15:38 16:57 WBC (4.5-11.0) K/mm3 MCH (28-32) pg RDW (13.2-15.2) % Seg Neuts % (Manual) (40.0-70.0) % Lymphocytes % (Manual) (13.4-35.0) % Seg Neutrophils # Man (1.8-7.7) K/mm3 Lymphocytes # (Manual) (1.2-5.4) K/mm3 APTT (24.2-36.6) Sec. D-Dimer (0-234) ng/mlDDU Creatinine (0.7-1.2) mg/dL Glucose (65-100) mg/dL Lactic Acid 2.20 H* 2.30 H* (0.7-2.0) mmol/L Magnesium (1.7-2.3) mg/dL AST (5-40) units/L - Imaging and Cardiology Chest x-ray: report reviewed, image reviewed CT scan - abdomen: report reviewed, image reviewed CT scan - pelvis: report reviewed, image reviewed Assessment and Plan 38F s/p LRYGB 09/30/18 presenting with abdominal epigastric pain, N/V found to have leukocytosis and JADYN. #1 N/V #2 Abdominal pain #3 s/p LRYGB 09/30/18 #4 Leukocytosis - Admit patient to IMCU under Dr Scott. I reviewed the CT images and did not see any free air, mesenteric edema, bowel wall edema, extreme SB dilatation. At present, etiology of leukocytosis is unknown. - Will keep NPO - hydrate with IVF - Telemetry - IV pain meds and nausea medication as needed - will initiate IV abx per sepsis protocol - Recheck labs in am, if they do not improve, she will likely need a diagnostic laparoscopy to r/o an abdominal source #5 JADYN - strict I/O - manzanares catheter - avoid nephrotoxic drugs - monitor Patient discussed with Dr Scott, who agrees with above assessment/plan. Chadwick Gilliland MD Bariatric Fellow
[2018-10-13] MEDS ORDERED: NACL 0.9% 1000 ML 1,000 ML ONE ×2 (19:28→22:33)
[2018-10-13] MEDS ORDERED: VANCOMYCIN PHARMACY TO DOSE IV SCH (22:00)
[2018-10-13] MEDS ORDERED: VANCOMYCIN 2,000 MG in NACL 0.9% 500 ML 500 ML IV ONE (22:00)
[2018-10-13] MEDS: SODIUM CHLORIDE FLUSH SYRINGE 10 ML IV SCH (22:02)
[2018-10-13] MEDS: NACL 0.9% 1000 ML 1,000 ML IV SCH (23:00)
[2018-10-14 00:24] LABS: Amorphous Crystals,Urine Few; Bilirubin,Urine NEG (Negative); Blood,Urine NEG (Negative); Color,Urine Yellow (Yellow); Granular Casts,Urine 7 /LPF; Urobilinogen,Urine < 2.0 mg/dL (<2.0)
[2018-10-14] MEDS ORDERED: TYLENOL ONE (02:13)
[2018-10-14] MEDS ORDERED: HEPARIN ONE ×2 (02:46→14:13)
[2018-10-14] MEDS: HEPARIN SUB-Q SCH ×4 (02:57→21:09)
[2018-10-14 05:53] LABS: Basophils # (Auto) 0.1 K/mm3 (0.0-0.1); Basophils % (Auto) 0.5 % (0.0-1.8); Eosinophils # (Auto) 0.1 K/mm3 (0.0-0.4); Eosinophils % (Auto) 0.7 % (0.0-4.3); Hematocrit 30.6 % (30.3-42.9); Hemoglobin 9.8 gm/dl (10.1-14.3); Lymphocytes # (Auto) 1.8 K/mm3 (1.2-5.4); Lymphocytes % (Auto) 12.5 % (13.4-35.0); Mean Corpuscular HGB Conc 32 % (30-34); Mean Corpuscular Volume 82 fl (79-97); Monocytes # (Auto) 0.8 K/mm3 (0.0-0.8); Monocytes % (Auto) 5.4 % (0.0-7.3); Platelet Count 243 K/mm3 (140-440); Red Blood Count 3.74 M/mm3 (3.65-5.03); Red Cell Distribution Width 15.7 % (13.2-15.2)
[2018-10-14 06:23] LABS: Albumin 3.5 g/dL (3.9-5); Calcium 8.4 mg/dL (8.4-10.2)
--- NOTE | 2018-10-14 07:19 | Progress Note ---
Assessment and Plan 38F s/p LRYGB 09/30/18 presenting with abdominal epigastric pain, N/V found to have leukocytosis and JADYN. #1 N/V #2 Abdominal pain #3 s/p LRYGB 09/30/18 #4 Leukocytosis - Admit patient to IMCU under Dr Scott. Awaiting a room. - NPO until labs normalize - cont IVF - IV pain meds and nausea medication as needed - cont IV abx per sepsis protocol - labs improved today, no surgery at this time #5 JADYN - strict I/O - manzanares catheter - avoid nephrotoxic drugs - monitor - improving Patient discussed with Dr Scott, who agrees with above assessment/plan. Chadwick Gilliland MD Bariatric Fellow Subjective Date of service: 10/14/18 Interval history: Feeling much better today. Abd pain improved. No N/V. Still sitting in ER, waiting for IMCU room. No acute events overnight. Objective - Exam Narrative Exam: Gen: AAO, NAD HEENT: Trachea midline, no masses Heart: RRR, no murmurs appreciated Lungs: Clear Abd: morbidly obese, incisions are healed and dry w/o signs of infection, no abdominal tenderness to palpation, no hernias or masses are appreciated Ext: No LE edema - Constitutional Vitals: Vital Signs - 12hr 10/13/18 10/13/18 10/13/18 19:30 19:45 19:59 Temperature Pulse Rate 91 H 81 82 Respiratory 13 22 16 Rate Blood Pressure 85/45 88/43 88/43 O2 Sat by Pulse 98 94 97 Oximetry 10/13/18 10/13/18 10/13/18 20:00 20:15 20:30 Temperature Pulse Rate 81 87 84 Respiratory 19 18 19 Rate Blood Pressure 97/44 84/44 99/49 O2 Sat by Pulse 97 98 97 Oximetry 10/13/18 10/13/18 10/13/18 20:34 20:45 21:00 Temperature Pulse Rate 87 85 91 H Respiratory 18 26 H 22 Rate Blood Pressure 99/49 80/39 88/43 O2 Sat by Pulse 98 93 Oximetry 10/13/18 10/13/18 10/13/18 21:15 21:30 21:45 Temperature Pulse Rate 89 90 92 H Respiratory 16 23 19 Rate Blood Pressure 94/44 77/31 80/44 O2 Sat by Pulse 96 96 100 Oximetry 10/13/18 10/13/18 10/13/18 22:00 22:15 22:30 Temperature Pulse Rate 80 84 84 Respiratory 26 H 22 25 H Rate Blood Pressure 96/39 95/42 96/40 O2 Sat by Pulse 95 96 94 Oximetry 10/13/18 10/13/18 10/13/18 22:46 23:00 23:16 Temperature Pulse Rate 88 87 90 Respiratory 22 16 25 H Rate Blood Pressure 96/40 92/41 92/41 O2 Sat by Pulse 95 98 93 Oximetry 10/13/18 10/13/18 10/13/18 23:30 23:39 23:46 Temperature 99.0 F Pulse Rate 92 H Respiratory 24 Rate Blood Pressure 92/41 86/41 O2 Sat by Pulse 96 96 Oximetry 10/14/18 10/14/18 10/14/18 00:00 00:16 00:30 Temperature Pulse Rate 90 93 H 86 Respiratory 24 17 21 Rate Blood Pressure 89/47 89/47 89/47 O2 Sat by Pulse 94 99 97 Oximetry 10/14/18 10/14/18 10/14/18 00:46 01:00 01:16 Temperature Pulse Rate 87 79 86 Respiratory 20 21 18 Rate Blood Pressure 89/47 95/48 95/48 O2 Sat by Pulse 96 97 98 Oximetry 10/14/18 10/14/18 10/14/18 01:30 02:07 05:05 Temperature Pulse Rate 87 Respiratory 13 Rate Blood Pressure 95/48 93/44 90/42 O2 Sat by Pulse 99 Oximetry 10/14/18 10/14/18 10/14/18 05:16 05:30 05:52 Temperature Pulse Rate 83 80 71 Respiratory 18 19 16 Rate Blood Pressure 90/42 90/42 90/42 O2 Sat by Pulse Oximetry 10/14/18 06:00 Temperature Pulse Rate 78 Respiratory 16 Rate Blood Pressure 102/49 O2 Sat by Pulse Oximetry - Labs CBC & Chem 7: 10/14/18 05:28 10/14/18 05:28 Labs: Abnormal lab results 10/13/18 10/13/18 10/13/18 Range/Units 14:47 14:47 14:47 WBC 19.4 H (4.5-11.0) K/mm3 Hgb (10.1-14.3) gm/dl MCH 26 L (28-32) pg RDW 15.4 H (13.2-15.2) % Lymph % (Auto) (13.4-35.0) % Seg Neutrophils % (40.0-70.0) % Seg Neuts % (Manual) 95.0 H (40.0-70.0) % Lymphocytes % (Manual) 2.0 L (13.4-35.0) % Seg Neutrophils # (1.8-7.7) K/mm3 Seg Neutrophils # Man 18.4 H (1.8-7.7) K/mm3 Lymphocytes # (Manual) 0.4 L (1.2-5.4) K/mm3 APTT 23.0 L (24.2-36.6) Sec. D-Dimer 796.05 H (0-234) ng/mlDDU Chloride (98-107) mmol/L Carbon Dioxide (22-30) mmol/L Creatinine 2.2 H (0.7-1.2) mg/dL Glucose 131 H (65-100) mg/dL Lactic Acid (0.7-2.0) mmol/L Magnesium 1.30 L (1.7-2.3) mg/dL AST 49 H (5-40) units/L Total Protein (6.3-8.2) g/dL Albumin (3.9-5) g/dL 10/13/18 10/13/18 10/14/18 Range/Units 15:38 16:57 05:28 WBC 14.6 H (4.5-11.0) K/mm3 Hgb 9.8 L (10.1-14.3) gm/dl MCH 26 L (28-32) pg RDW 15.7 H (13.2-15.2) % Lymph % (Auto) 12.5 L (13.4-35.0) % Seg Neutrophils % 80.9 H (40.0-70.0) % Seg Neuts % (Manual) (40.0-70.0) % Lymphocytes % (Manual) (13.4-35.0) % Seg Neutrophils # 11.8 H (1.8-7.7) K/mm3 Seg Neutrophils # Man (1.8-7.7) K/mm3 Lymphocytes # (Manual) (1.2-5.4) K/mm3 APTT (24.2-36.6) Sec. D-Dimer (0-234) ng/mlDDU Chloride (98-107) mmol/L Carbon Dioxide (22-30) mmol/L Creatinine (0.7-1.2) mg/dL Glucose (65-100) mg/dL Lactic Acid 2.20 H* 2.30 H* (0.7-2.0) mmol/L Magnesium (1.7-2.3) mg/dL AST (5-40) units/L Total Protein (6.3-8.2) g/dL Albumin (3.9-5) g/dL 10/14/18 Range/Units 05:28 WBC (4.5-11.0) K/mm3 Hgb (10.1-14.3) gm/dl MCH (28-32) pg RDW (13.2-15.2) % Lymph % (Auto) (13.4-35.0) % Seg Neutrophils % (40.0-70.0) % Seg Neuts % (Manual) (40.0-70.0) % Lymphocytes % (Manual) (13.4-35.0) % Seg Neutrophils # (1.8-7.7) K/mm3 Seg Neutrophils # Man (1.8-7.7) K/mm3 Lymphocytes # (Manual) (1.2-5.4) K/mm3 APTT (24.2-36.6) Sec. D-Dimer (0-234) ng/mlDDU Chloride 110.3 H (98-107) mmol/L Carbon Dioxide 19 L (22-30) mmol/L Creatinine 1.8 H (0.7-1.2) mg/dL Glucose 109 H (65-100) mg/dL Lactic Acid (0.7-2.0) mmol/L Magnesium (1.7-2.3) mg/dL AST (5-40) units/L Total Protein 6.1 L (6.3-8.2) g/dL Albumin 3.5 L (3.9-5) g/dL Medications & Allergies - Medications Allergies/Adverse Reactions: Allergies amoxicillin Allergy (Verified 09/24/18 09:09) Rash, CLOSES THE AIRWAYS Home Medications: Home Medications Medication Instructions Recorded Confirmed Last Taken Type RX: Albuterol Sulfate [Proventil 2 puff IH Q4H PRN 09/24/18 09/24/18 09/29/18 History Hfa] RX: Levothyroxine [Synthroid] 150 mcg PO QAM 09/24/18 09/24/18 09/30/18 07:00 History RX: Lisinopril/Hydrochlorothiazide 1 each PO DAILY 09/24/18 09/24/18 09/29/18 History [Zestoretic 10-12.5 mg Tablet] RX: Montelukast [Singulair] 10 mg PO QPM 09/24/18 09/24/18 09/29/18 History RX: Omeprazole 40 mg PO DAILY 09/24/18 09/24/18 09/30/18 07:00 History RX: metFORMIN [Glucophage] 500 mg PO BID 09/24/18 09/24/18 09/29/18 History Active Medications: Generic Name Dose Route Start Last Admin Trade Name Freq PRN Reason Stop Dose Admin Acetaminophen 650 mg 10/13/18 18:30 10/14/18 02:20 Tylenol PO 650 mg Q6H PRN Administration Pain Albuterol 2.5 mg 10/13/18 18:30 Proventil IH Q3HRT PRN Shortness Of Breath Heparin Sodium (Porcine) 5,000 unit 10/13/18 22:00 10/14/18 02:57 Heparin SUB-Q 5,000 unit Q8HR JAVED Administration Sodium Chloride 1,000 mls @ 125 mls/hr 10/13/18 19:00 10/13/18 23:00 Nacl 0.9% 1000 Ml IV 125 mls/hr DIRECT JAVED Administration Levofloxacin/Dextrose 750 mg in 150 mls @ 150 mls/hr 10/14/18 16:00 Levaquin 750mg/150ml IV Q48H JAVED Protocol Vancomycin HCl 1,750 mg/ 535 mls @ 333.333 mls/hr 10/14/18 22:00 Sodium Chloride IV Q24H JAVED Morphine Sulfate 2 mg 10/13/18 18:30 Morphine IV Q4H PRN Pain, Moderate (4-6) Naloxone HCl 0.1 mg 10/13/18 18:30 Narcan 0.4 Mg/1 Ml IV Q2MIN PRN Res Rate </= 8 or 02 SAT < 92% Ondansetron HCl 4 mg 10/13/18 18:30 Zofran IV Q6H PRN Nausea And Vomiting Pantoprazole Sodium 40 mg 10/14/18 10:00 Protonix IV DAILY JAVED Sodium Chloride 10 ml 10/13/18 22:00 10/13/18 22:02 Sodium Chloride Flush Syringe 10 Ml IV 10 ml BID JAVED Administration Sodium Chloride 10 ml 10/13/18 18:30 Sodium Chloride Flush Syringe 10 Ml IV PRN PRN LINE FLUSH
[2018-10-14] MEDS ORDERED: MAGNESIUM SULFATE 4GM/100ML 4 GM/100 ML BAG IV PRN (07:20)
[2018-10-14] MEDS ORDERED: MAGNESIUM SULFATE 1 GM in NACL 0.9% 50 ML IV PRN (07:20)
[2018-10-14] MEDS ORDERED: MAGNESIUM SULFATE 2GM/50ML 2 GM/50 ML BAG IV PRN (07:20)
[2018-10-14] MEDS ORDERED: SODIUM PHOSPHATE 15 MMOL in NACL 0.9% 250ML 150 ML IV PRN (07:20)
[2018-10-14] MEDS ORDERED: SODIUM PHOSPHATE 30 MMOL in NACL 0.9% 500 ML 250 ML IV PRN (07:20)
[2018-10-14] MEDS ORDERED: KCL 10MEQ/100ML 10 MEQ/100 ML BAG IV PRN (07:20)
[2018-10-14] MEDS ORDERED: KCL 20MEQ/100ML 20 MEQ/100 ML BAG IV PRN (07:20)
[2018-10-14] MEDS ORDERED: PROTONIX IV ONE (09:57)
[2018-10-14] MEDS: SODIUM CHLORIDE FLUSH SYRINGE 10 ML IV SCH (10:00)
[2018-10-14] MEDS: PROTONIX IV SCH (10:00)
[2018-10-14] MEDS ORDERED: LEVAQUIN 500MG/100ML 500 MG/100 ML BAG IV SCH (10:00)
[2018-10-14] MEDS ORDERED: LOVENOX SUB-Q SCH (10:00)
[2018-10-14] MEDS ORDERED: D50W (25GM) Syringe IV PRN (11:12)
[2018-10-14] MEDS: HumaLOG SUB-Q SCH ×2 (13:54→19:41)
[2018-10-14] MEDS ORDERED: LEVAQUIN 750MG/150ML 750 MG/150 ML BAG IV SCH (16:00)
[2018-10-14] MEDS ORDERED: NACL 0.9% 1000 ML 1,000 ML ONE (16:22)
[2018-10-14] MEDS ORDERED: LEVAQUIN 750MG/150ML 750 MG/150 ML BAG IV ONE (16:22)
[2018-10-14] MEDS ORDERED: VANCOMYCIN 1,750 MG in NACL 0.9% 500 ML 500 ML IV SCH (22:00)
[2018-10-14] MEDS: NACL 0.9% 1000 ML 1,000 ML IV SCH (22:04)
[2018-10-15 04:36] LABS: Basophils # (Auto) 0.1 K/mm3 (0.0-0.1); Basophils % (Auto) 0.7 % (0.0-1.8); Eosinophils # (Auto) 0.2 K/mm3 (0.0-0.4); Hematocrit 29.9 % (30.3-42.9); Lymphocytes # (Auto) 2.5 K/mm3 (1.2-5.4); Lymphocytes % (Auto) 27.8 % (13.4-35.0); Mean Corpuscular HGB Conc 33 % (30-34); Mean Corpuscular Volume 80 fl (79-97); Monocytes # (Auto) 0.5 K/mm3 (0.0-0.8); Monocytes % (Auto) 5.6 % (0.0-7.3); Platelet Count 248 K/mm3 (140-440); Red Blood Count 3.72 M/mm3 (3.65-5.03); Red Cell Distribution Width 15.5 % (13.2-15.2)
[2018-10-15 04:55] LABS: Calcium 8.7 mg/dL (8.4-10.2)
[2018-10-15] MEDS: HEPARIN SUB-Q SCH (05:21)
--- NOTE | 2018-10-15 06:59 | Progress Note ---
Assessment and Plan 38F s/p LRYGB 09/30/18 presenting with abdominal epigastric pain, N/V found to have leukocytosis and JADYN. #1 N/V #2 Abdominal pain #3 s/p LRYGB 09/30/18 #4 Leukocytosis - resolved - Her abd pain has completely resolved and her labs are normal - discontinue abx - start bariatric CLD - I discussed with her that if she tolerates a diet with no issues, she could go home today with f/u in clinic in 1 week #5 JADYN - resolved - labs normal with IVFs Patient discussed with Dr Scott, who agrees with above assessment/plan. Chadwick Gilliland MD Bariatric Fellow Subjective Date of service: 10/15/18 Interval history: No major events. Patient was transferred from ER to 3B, as her vitals are much improved and normal now. She has no pain at all and feels hungry. She says she is ready to discharge home. Objective - Exam Narrative Exam: Gen: AAO, NAD HEENT: Trachea midline, no masses Heart: RRR, no murmurs appreciated Lungs: Clear Abd: morbidly obese, incisions are healed and dry w/o signs of infection, no abdominal tenderness to palpation, no hernias or masses are appreciated Ext: No LE edema - Constitutional Vitals: Vital Signs - 12hr 10/14/18 10/14/18 10/15/18 19:58 21:10 00:04 Temperature 98.1 F 98.6 F Pulse Rate 86 76 Respiratory 18 7 L 19 Rate Blood Pressure 128/70 102/52 O2 Sat by Pulse 95 97 Oximetry 10/15/18 03:47 Temperature 97.2 F L Pulse Rate 82 Respiratory 18 Rate Blood Pressure 113/61 O2 Sat by Pulse 95 Oximetry - Labs CBC & Chem 7: 10/15/18 03:55 10/15/18 03:55 Labs: Abnormal lab results 10/15/18 10/15/18 Range/Units 03:55 03:55 Hgb 10.0 L (10.1-14.3) gm/dl Hct 29.9 L (30.3-42.9) % MCH 27 L (28-32) pg RDW 15.5 H (13.2-15.2) % Chloride 107.7 H (98-107) mmol/L Medications & Allergies - Medications Allergies/Adverse Reactions: Allergies amoxicillin Allergy (Verified 09/24/18 09:09) Rash, CLOSES THE AIRWAYS Home Medications: Home Medications Medication Instructions Recorded Confirmed Last Taken Type Albuterol Sulfate [Proventil Hfa] 2 puff IH Q4H PRN 09/24/18 10/14/18 09/29/18 History Levothyroxine [Synthroid] 150 mcg PO QAM 09/24/18 10/14/18 10/13/18 History Lisinopril/Hydrochlorothiazide 1 each PO DAILY 09/24/18 10/14/18 10/13/18 History [Zestoretic 10-12.5 mg Tablet] Montelukast [Singulair] 10 mg PO QPM 09/24/18 10/14/18 10/13/18 History Omeprazole 40 mg PO DAILY 09/24/18 10/14/18 10/13/18 History metFORMIN [Glucophage] 500 mg PO BID 09/24/18 10/14/18 10/13/18 History Active Medications: Generic Name Dose Route Start Last Admin Trade Name Freq PRN Reason Stop Dose Admin Acetaminophen 650 mg 10/13/18 18:30 10/14/18 02:20 Tylenol PO 650 mg Q6H PRN Administration Pain Albuterol 2.5 mg 10/13/18 18:30 Proventil IH Q3HRT PRN Shortness Of Breath Dextrose 50 ml 10/14/18 11:12 D50w (25gm) Syringe IV PRN PRN Hypoglycemia Heparin Sodium (Porcine) 5,000 unit 10/13/18 22:00 10/15/18 05:21 Heparin SUB-Q 5,000 unit Q8HR JAVED Administration Sodium Chloride 1,000 mls @ 125 mls/hr 10/13/18 19:00 10/14/18 22:04 Nacl 0.9% 1000 Ml IV 125 mls/hr DIRECT JAVED Administration Potassium Chloride 10 meq in 100 mls @ 100 mls/hr 10/14/18 07:20 Kcl 10meq/100ml IV Q1H PRN Potassium 3-3.5 mEq/L Potassium Chloride 20 meq in 100 mls @ 100 mls/hr 10/14/18 07:20 Kcl 20meq/100ml IV Q1H PRN Potassium 2.6-2.9 mEq/L Magnesium Sulfate 1 gm/ Sodium 52 mls @ 26 mls/hr 10/14/18 07:20 Chloride IV Q2H PRN Magnesium level 1.8-2 mg/dL Magnesium Sulfate 2 gm in 50 mls @ 25 mls/hr 10/14/18 07:20 Magnesium Sulfate 2gm/50ml IV Q2H PRN Magnesium level 1.5-1.7 mg/dL Magnesium Sulfate 4 gm in 100 mls @ 25 mls/hr 10/14/18 07:20 Magnesium Sulfate 4gm/100ml IV Q4H PRN Magnesium level < 1.4 mg/dL Sodium Phosphate 15 mmol/ 155 mls @ 40 mls/hr 10/14/18 07:20 Sodium Chloride IV Q4H PRN Phosphorous level 1.2-2.5 mg/d Insulin Human Lispro 0 unit 10/14/18 12:00 10/14/18 19:41 Humalog SUB-Q Not Given Q6HR [facility] Protocol Morphine Sulfate 2 mg 10/13/18 18:30 10/14/18 21:10 Morphine IV 2 mg Q4H PRN Administration Pain, Moderate (4-6) Naloxone HCl 0.1 mg 10/13/18 18:30 Narcan 0.4 Mg/1 Ml IV Q2MIN PRN Res Rate </= 8 or 02 SAT < 92% Ondansetron HCl 4 mg 10/13/18 18:30 Zofran IV Q6H PRN Nausea And Vomiting Pantoprazole Sodium 40 mg 10/14/18 10:00 10/14/18 10:00 Protonix IV 40 mg DAILY JAVED Administration Sodium Chloride 10 ml 10/13/18 22:00 10/14/18 10:00 Sodium Chloride Flush Syringe 10 Ml IV 10 ml BID JAVED Administration Sodium Chloride 10 ml 10/13/18 18:30 Sodium Chloride Flush Syringe 10 Ml IV PRN PRN LINE FLUSH
[2018-10-15 08:02] VITALS: BP 109/56
[2018-10-15] MEDS: SODIUM CHLORIDE FLUSH SYRINGE 10 ML IV SCH (12:37)
[2018-10-15] MEDS: HumaLOG SUB-Q SCH (12:38)
[2018-10-15] MEDS: PROTONIX IV SCH (12:38)
--- NOTE | 2018-10-15 13:00 | Discharge Summary ---
Providers - Providers Date of Admission: 10/13/18 18:34 Date of discharge: 10/15/18 Attending physician: TERRELL SCOTT 10/13/18 13:39 Consult to Physician [CONS] Stat Comment: DR PARI FELIZ W/DR SCOTT @[id number] Consulting Provider: TERRELL SCOTT Physician Instructions: Reason For Exam: abd pain n/v known to you Hospitalization Reason for admission: sepsis, abdominal pain, vomiting Condition: Good Pertinent studies: 10/13/18: CT abdomen/pelvis - unremarkable 10/13/18: VQ scan - low probability for PE 10/13/18: LE doppler - negative for clot Hospital course: From H&P: "38F MO s/p LRYGB 09/30/18 presents to ER with c/o epigastric pain, nausea, vomiting, and SOB after ingesting some yogurt today. Her initial operation was nearly 2 weeks ago and was uneventful. She was discharged home on POD#1 after observation. She states that she has done fine on clear liquids, just started phase II diet today with full liquids and had an "episode" after the yogurt. Denies dysuria, changes in bowel habits, headaches, visual changes, new onset rashes. She endorses chills at home although she did not take her temperature, +nausea, +vomiting, + chest pain, + SOB. In the ER, labs were significant for WBC 19k and Cr 2.2. She was hypotensive in 90s/ with HRs in the 90s. She has been given several fluid boluses and started on sepsis protocol with blood cx, abx (levoquin and flagyl). Lactate is 2.3. A CT abdpelvis with po contrast only is reported as essentially normal postoperative changes with no inflammation, no obstruction, no bowel dilatation, no free air. Upon evaluation, she states that she feels much better now although still has some abdominal epigastric pain. Her nausea is also better. Her BP is in the 90s/, HR 80s. " Plans were made for admission to [facility], but due to bed availability, she was kept in the ER. While in the ER, she was maintained on IVFs and IV abx. Her labs normalized quickly and were normal by HD#2. Her abdominal pain was improved and gone by day 2, and she was transferred to the general surgical floor. She was started on a diet, which she tolerated, and then discharged home in stable condition. 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 Disposition: DC-01 TO HOME OR SELFCARE Core Measure Documentation - Palliative Care Palliative Care/ Comfort Measures: Not Applicable - Core Measures Any of the following diagnoses?: none - VTE Discharge Requirements Deep Vein Thrombosis/Pulmonary Embolism Present on Admission: No - Acute MA Discharge Requirements Aspirin at discharge: No Reason for no aspirin on DC: Surgical contraindication - Heart Failure Discharge Requirements NISHANT/ARB for LVSD if EF <40%: Not Applicable - Stroke Discharge Requirements Statin for LDL = or >70 mg/dl on DC: Not Applicable Exam - Physical Exam Narrative exam: Gen: AAO, NAD HEENT: Trachea midline, no masses Heart: RRR, no murmurs appreciated Lungs: Clear Abd: morbidly obese, incisions are healed and dry w/o signs of infection, no abdominal tenderness to palpation, no hernias or masses are appreciated Ext: No LE edema - Constitutional Vitals: Temp Pulse Resp BP Pulse Ox 97.9 F 76 18 109/56 97 10/15/18 07:23 10/15/18 07:23 10/15/18 08:50 10/15/18 07:23 10/15/18 07:23 Plan Diet: clear liquids, advance as tolerated Wound: keep clean and dry Special Instructions: no heavy lifting Additional Instructions: Fu in [address] Scott. Patient instructed to call the office to cancel 's appt and reschedule. Follow up with: LANIE GREEN [Other] - 3-5 Days
== END 2018-10-15 13:51 | disposition home or self-care (01) | DRG 392 ==
LOC: ED 12:50 → IMCU 18:34 → 3B-SURG 10-14 17:29
PROVIDERS: ADMIT Specialist; ATTEND Specialist
DX: K91.1 Postgastric surgery syndromes (principal); N17.9 Acute kidney failure, unspecified; R65.10 Systemic inflammatory response syndrome (SIRS) of non-infectious origin without acute organ dysfunction; Z68.41 Body mass index [BMI] 40.0-44.9, adult; E83.42 Hypomagnesemia; E66.01 Morbid (severe) obesity due to excess calories; I10 Essential (primary) hypertension; E11.9 Type 2 diabetes mellitus without complications; Y83.8 Other surgical procedures as the cause of abnormal reaction of the patient, or of later complication, without mention of misadventure at the time of the procedure; K21.9 Gastro-esophageal reflux disease without esophagitis; K76.0 Fatty (change of) liver, not elsewhere classified; G47.33 Obstructive sleep apnea (adult) (pediatric); G89.29 Other chronic pain; E03.9 Hypothyroidism, unspecified; Z88.1 Allergy status to other antibiotic agents; Z71.3 Dietary counseling and surveillance; Z90.49 Acquired absence of other specified parts of digestive tract; Z79.51 Long term (current) use of inhaled steroids; Z79.84 Long term (current) use of oral hypoglycemic drugs; Y92.098 Other place in other non-institutional residence as the place of occurrence of the external cause
CPT/HCPCS: 36415; 71045; 74176; 78582; 80048; 80053; 81001; 82140; 82550; 82962; 83735; 84100; 84484; 84702; 85007; 85025; 85379; 85610; 85730; 87040; 93005; 93010; 93970; 96361; 96365; 96375; G0378; A9540; A9558; C9113; J1644; J1956; J2270; J2765; J3370; J3475; J3480; J7030; J7040; J7050